=== PATIENT | female | born 1945 | race Caucasian/White ===

== ENCOUNTER → 2017-11-12 | Outpatient (CLI) | payer MEDICARE ==
[~2017-11-12] MED LIST: ARIMIDEX1 MG PO; ASPIRIN FOR CHI81 MG PO; BACTRIM DS 8001 TA1 PO; KLOR-CON 88 MEQ PO; LASIX40 MG PO; LEVOFLOXACIN500 MG PO; LEXAPRO10 MG PO; LOTRISONE 0.05%45 GM T; PREDNICOT20 MG PO; SIMVASTATIN20 MG PO; VICODIN 500 MG-1 TAB PO
== END | disposition home or self-care (01) ==
LOC: RAD 12:01
DX: I10 Essential (primary) hypertension (principal); R06.02 Shortness of breath; R05 Cough; R09.89 Other specified symptoms and signs involving the circulatory and respiratory systems; Z87.891 Personal history of nicotine dependence; Z85.3 Personal history of malignant neoplasm of breast

== ENCOUNTER → 2017-12-28 | Outpatient (CLI) | payer MEDICARE ==
--- NOTE | ~2017-12-28 | PF ---
[place], [place] PULMONARY FUNCTION TEST NAME: SUNDAYKA[facility] UNIT #: [id number] ROOM: DOCTOR: BENITEZ JACINTO MD,MICHELA BIRTHDATE: [birth year] DOS: 12/28/2017 The procedure was ordered by Dr. Leah Marin. HISTORY: The patient was noted as a 72-year-old female, height of 60 inches, weight 194 pounds with BMI of the patient at this time not available. The patient testing was done for assessment of the shortness of breath. The patient was also reported symptoms of frequent wheezing. Past tobacco use was noted about two-thirds pack of cigarettes per day for 25 years, discontinued 30 years ago. SPIROMETRY: The FVC was recorded 1.94 liters, 82% predicted value. FEV1 was noted at 1.42 liters at 78% predicted value, mildly decreased. No significant improvement occurred postbronchodilator test. Ratio of FEV1/FVC recorded 73%. Flow volume loop for the patient noted with suboptimal effort was suspected. The lung volumes, thoracic gas volume recorded as 76%, residual volume of 87%, total lung capacity 72%. RV/TLC ratio 125%. The lung volume for the patient was suggestive of mild restrictive lung disease. The patient lung diffusion recorded 62%, mildly decreased without correction of carbon monoxide and hemoglobin values. The patient's airway resistance and passive conductance were noted normal. FINAL IMPRESSION: Mild restrictive lung disease. The patient was assessed, ____ etiology is unclear. Clinical correlation was advised. MICHELA MARQUIS MD CM:PFREPORT:PULMONARY FUNCTION TEST [id number] MICHELA JACINTO MD
== END | disposition home or self-care (01) ==
LOC: CP 10:11
DX: J98.4 Other disorders of lung (principal); Z87.891 Personal history of nicotine dependence

== ENCOUNTER 2018-11-17 14:16 | Emergency (ER) | payer MEDICARE ==
[~2018-11-17] VITALS: Ht 152.4 cm; Wt 86.2 kg
[2018-11-17] MEDS ORDERED: ANAPROX DS550 MG PO (14:40)
[2018-11-17] MEDS ORDERED: MOBIC7.5 MG PO (16:01)
== END 2018-11-17 16:18 | disposition home or self-care (01) ==
LOC: ED 14:16
DX: M25.511 Pain in right shoulder (principal); I10 Essential (primary) hypertension; E78.00 Pure hypercholesterolemia, unspecified; M17.0 Bilateral primary osteoarthritis of knee; Z79.899 Other long term (current) drug therapy; Z79.82 Long term (current) use of aspirin; Z96.651 Presence of right artificial knee joint; Z96.652 Presence of left artificial knee joint

== ENCOUNTER → 2018-11-28 | Outpatient (CLI) | payer MEDICARE ==
[~2018-11-28] MED LIST changes: +ANAPROX DS550 MG PO; +MOBIC7.5 MG PO
== END | disposition home or self-care (01) ==
LOC: RAD 08:56
DX: M25.78 Osteophyte, vertebrae (principal)

== ENCOUNTER 2019-04-12 21:30 | Emergency (ER) | payer MEDICARE ==
[~2019-04-12] VITALS: Ht 152.4 cm; Wt 88.0 kg
== END 2019-04-13 00:27 | disposition home or self-care (01) ==
LOC: ED 21:30
DX: S93.401A Sprain of unspecified ligament of right ankle, initial encounter (principal); M79.671 Pain in right foot; Z79.899 Other long term (current) drug therapy; Z79.82 Long term (current) use of aspirin; W01.0XXA Fall on same level from slipping, tripping and stumbling without subsequent striking against object, initial encounter; Y93.89 Activity, other specified; Y92.098 Other place in other non-institutional residence as the place of occurrence of the external cause; Y99.8 Other external cause status

== ENCOUNTER → 2019-04-15 | Outpatient (CLI) | payer MEDICARE ==
[~2019-04-15] MED LIST changes: +ACCUPRIL5 M1 PO; +CALCIUM + VITA1 EAC2 PO; +CENTRUM SILVER1 EACH PO; +COREG6.25 MG PO; +ELIQUIS5 M1 PO; +KLOR-CON 1010 ME1 PO; +TAMOXIFEN CITRA20 MG PO; +VITAMIN D50000 UNIT PO; +XANAX0.25 MG PO
== END | disposition home or self-care (01) ==
LOC: US 16:28
DX: M79.605 Pain in left leg (principal); R60.9 Edema, unspecified

== ENCOUNTER 2019-05-27 15:34 | Inpatient (IN) | payer MEDICARE ==
[~2019-05-27] VITALS: Ht 152.4 cm; Wt 92.4 kg
[~2019-05-27 15:34] MED LIST changes: -ACCUPRIL5 M1 PO; -CALCIUM + VITA1 EAC2 PO; -CENTRUM SILVER1 EACH PO; -COREG6.25 MG PO; -ELIQUIS5 M1 PO; -KLOR-CON 1010 ME1 PO; -TAMOXIFEN CITRA20 MG PO; -VITAMIN D50000 UNIT PO; -XANAX0.25 MG PO
[2019-05-27 16:33] LABS: BASO % 0.5 % (0.0-1.0); EOS # 0.2 10*3/uL (0.0-0.4); EOS % 2.3 % (1.0-4.0); HEMATOCRIT 37.8 % (37.0-47.0); HEMOGLOBIN 12.6 g/dl (12.0-16.0); LYMPH # 1.9 10*3/uL (1.3-4.4); LYMPH % 30.1 % (27.0-41.0); MEAN CELL VOLUME 90.6 fl (81.0-99.0); MEAN CORPUSCULAR HGB 30.2 pg (27.0-31.0); MEAN CORPUSCULAR HGB CONC 33.3 g/dl (33.0-37.0); MEAN PLATELET VOLUME 8.9 fl (9.6-12.3); MONO # 0.6 10*3/uL (0.1-1.0); MONO % 9.5 % (3.0-9.0); NEUT # 3.7 10*3/uL (2.3-7.9); NEUT % 57.3 % (47.0-73.0); PLATELET COUNT AUTOMATED 131 10*3/uL (130-400); RED BLOOD COUNT 4.17 10*6/uL (4.10-5.10); RED CELL DISTRI WIDTH 13.5 % (0-14.5); WHITE BLOOD COUNT 6.5 10*3/uL (4.8-10.8)
[2019-05-27 16:45] LABS: ACT PARTIAL THROMBO TIME 23.8 SECONDS (20.0-32.1); INTERNATIONAL NORM RATIO 0.9 (2.0-3.5)
[2019-05-27 16:47] LABS: ALBUMIN 3.6 gm/dl (3.1-4.5); ALKALINE PHOSPHATASE 58 U/L (45-117); BUN 18 mg/dl (7-24); CHLORIDE 108 mmol/L (98-107); CREATININE 0.97 mg/dL (0.55-1.02); SGOT/AST 16 IU/L (3-35); SGPT/ALT 24 U/L (12-78); SODIUM 141 mmol/L (136-145); TOTAL PROTEIN 6.8 gm/dL (6.4-8.2)
[2019-05-27] MEDS ORDERED: KLOR-CON 1010 ME1 PO (17:06)
[2019-05-27] MEDS ORDERED: XANAX0.25 MG PO (17:07)
[2019-05-27] MEDS ORDERED: COREG6.25 MG PO (17:07)
[2019-05-27] MEDS ORDERED: LASIX40 MG PO (17:08)
[2019-05-27] MEDS ORDERED: ACCUPRIL5 M1 PO (17:09)
[2019-05-27] MEDS ORDERED: TAMOXIFEN CITRA20 MG PO (17:10)
[2019-05-27] MEDS ORDERED: CENTRUM SILVER1 EACH PO (17:11)
[2019-05-27] MEDS ORDERED: CALCIUM + VITA1 EAC2 PO (17:11)
[2019-05-27] MEDS ORDERED: VITAMIN D50000 UNIT PO (17:12)
--- NOTE | 2019-05-27 17:12 | NUR ---
MED REC UPDATED WITH PT AT BEDSIDE VIA LIST FROM HOME.
[2019-05-27 18:08] VITALS: BP 163/57
[2019-05-27 20:00] VITALS: BP 155/51
[2019-05-28] VITALS: BP 148/47
--- NOTE | 2019-05-28 04:51 | NUR ---
PATIENT RESTING WITH EYES CLOSED.RESPIRATIONS EASY AND UNLABORED. CALL LIGHT WITHIN REACH. WILL MONITOR.
--- NOTE | 2019-05-28 04:54 | NUR ---
24 HR chart check completed.
[2019-05-28 06:36] LABS: BASO % 0.6 % (0.0-1.0); EOS # 0.2 10*3/uL (0.0-0.4); HEMATOCRIT 34.5 % (37.0-47.0); HEMOGLOBIN 11.2 g/dl (12.0-16.0); LYMPH # 1.8 10*3/uL (1.3-4.4); LYMPH % 35.9 % (27.0-41.0); MEAN CORPUSCULAR HGB 29.6 pg (27.0-31.0); MEAN CORPUSCULAR HGB CONC 32.5 g/dl (33.0-37.0); MEAN PLATELET VOLUME 9.5 fl (9.6-12.3); MONO # 0.5 10*3/uL (0.1-1.0); NEUT # 2.5 10*3/uL (2.3-7.9); NEUT % 50.3 % (47.0-73.0); PLATELET COUNT AUTOMATED 126 10*3/uL (130-400); RED BLOOD COUNT 3.79 10*6/uL (4.10-5.10); RED CELL DISTRI WIDTH 13.5 % (0-14.5)
--- NOTE | 2019-05-28 06:55 | NUR ---
UNABLE TO GET IV IN PATIENT. 2 NURSES TRIED3 TIMES ON LEFT ARM DUE TO RESTRICTION ON RIGHT ARM. DR MENESES CALLED- NO ANSWER. WILL CALL BACK.
--- NOTE | 2019-05-28 06:57 | NUR ---
NEW CONSULT CALLED TO DR EID.
--- NOTE | 2019-05-28 09:00 | NUR ---
[employer] Attendant in to talk to patient. Patient states lives at home with her . There are 1 steps in the home. Physician: Dr. Leah Marin [facility] Home health services: none Patient's level of ADLs: INDEPENDENT Patient has working utilities: yes DME: [facility] Follow-up physician's appointment after d/c: she prefers to make her own follow up appt after discharge Does patient want to access PORTAL?: no Discharge plan discussed with patient. She lives at home with her . She is independent in her ADLs and ambulation. Discussed home health care services and she denies any home needs at this time. When medically stable she will be discharged to home. Her will transport on discharge. ANAYA PARK
[2019-05-28 12:00] VITALS: BP 145/53
[2019-05-28 16:00] VITALS: BP 143/51
[2019-05-28 20:00] VITALS: BP 155/54
[2019-05-29] VITALS: BP 141/55
--- NOTE | 2019-05-29 01:51 | NUR ---
24 HR chart check completed.
[2019-05-29] MEDS ORDERED: ELIQUIS5 M1 PO ×2 (09:43→09:46)
--- NOTE | 2019-05-29 13:55 | NUR ---
Discharge instructions reviewed with patient/family. Patient receptive and verbalizes understanding. Follow-up care arranged. Written instructions given to patient/family. BETH SPENCER
== END 2019-05-29 13:55 | disposition home or self-care (01) | DRG 300 ==
LOC: ED 15:34 → EDHOLD 16:19 → 4E 16:19
PROVIDERS: Family Medicine; ADMIT Internal Medicine
DX: I82.411 Acute embolism and thrombosis of right femoral vein (principal); F33.0 Major depressive disorder, recurrent, mild; I82.431 Acute embolism and thrombosis of right popliteal vein; I82.491 Acute embolism and thrombosis of other specified deep vein of right lower extremity; E78.2 Mixed hyperlipidemia; I10 Essential (primary) hypertension; F41.1 Generalized anxiety disorder; G35 Multiple sclerosis; Z96.651 Presence of right artificial knee joint; Z90.49 Acquired absence of other specified parts of digestive tract; Z90.710 Acquired absence of both cervix and uterus; Z85.3 Personal history of malignant neoplasm of breast; Z79.82 Long term (current) use of aspirin; Z79.899 Other long term (current) drug therapy

== ENCOUNTER → 2019-05-27 | Outpatient (CLI) | payer MEDICARE | END | disposition home or self-care (01) | LOC: US 13:54 | DX: I82.411 Acute embolism and thrombosis of right femoral vein (principal) ==

== ENCOUNTER → 2019-07-08 | Outpatient (CLI) | payer MEDICARE ==
[~2019-07-08] MED LIST changes: +ACCUPRIL5 M1 PO; +CALCIUM + VITA1 EAC2 PO; +CENTRUM SILVER1 EACH PO; +COREG6.25 MG PO; +ELIQUIS5 M1 PO; +KLOR-CON 1010 ME1 PO; +TAMOXIFEN CITRA20 MG PO; +VITAMIN D50000 UNIT PO; +XANAX0.25 MG PO
== END | disposition home or self-care (01) ==
LOC: RAD 10:53
DX: M85.88 Other specified disorders of bone density and structure, other site (principal); Z78.0 Asymptomatic menopausal state; Z85.3 Personal history of malignant neoplasm of breast

== ENCOUNTER → 2019-10-02 | Outpatient (CLI) | payer MEDICARE ==
[2019-10-02 13:41] LABS: BASO % 0.5 % (0.0-1.0); EOS # 0.1 10*3/uL (0.0-0.4); EOS % 1.8 % (1.0-4.0); HEMATOCRIT 39.9 % (37.0-47.0); HEMOGLOBIN 12.7 g/dl (12.0-16.0); LYMPH # 1.7 10*3/uL (1.3-4.4); LYMPH % 28.6 % (27.0-41.0); MEAN CELL VOLUME 90.3 fl (81.0-99.0); MEAN CORPUSCULAR HGB 28.7 pg (27.0-31.0); MEAN CORPUSCULAR HGB CONC 31.8 g/dl (33.0-37.0); MEAN PLATELET VOLUME 8.9 fl (9.6-12.3); MONO # 0.4 10*3/uL (0.1-1.0); MONO % 7.1 % (3.0-9.0); NEUT # 3.7 10*3/uL (2.3-7.9); NEUT % 61.7 % (47.0-73.0); PLATELET COUNT AUTOMATED 144 10*3/uL (130-400); RED BLOOD COUNT 4.42 10*6/uL (4.10-5.10); RED CELL DISTRI WIDTH 13.7 % (0-14.5)
[2019-10-02 14:11] LABS: ALBUMIN 3.4 gm/dl (3.1-4.5); BUN 17 mg/dl (7-24); CHLORIDE 110 mmol/L (98-107); CHOLESTEROL 139 mg/dL (<200); CREATININE 0.99 mg/dL (0.55-1.02); POTASSIUM 4.2 mmol/L (3.5-5.1); SGOT/AST 18 IU/L (3-35); SGPT/ALT 23 U/L (12-78); SODIUM 144 mmol/L (136-145); TOTAL PROTEIN 6.8 gm/dL (6.4-8.2); TRIGLYCERIDES 222 mg/dl (<150); VLDL CHOLESTEROL 44 mg/dL (6-40)
[2019-10-02 14:18] LABS: ALKALINE PHOSPHATASE 74 U/L (45-117); FREE T4 1.12 ng/dl (0.76-1.46); HDL CHOLESTEROL 48 mg/dl (40-60); LDL CHOLESTEROL 47 mg/dL (9-159)
[2019-10-02 14:45] LABS: VITAMIN D, 25-HYDROXY 51.9 ng/mL (30-100)
== END | disposition home or self-care (01) ==
LOC: LAB 12:53 → US 13:30
PROVIDERS: Internal Medicine
DX: I82.409 Acute embolism and thrombosis of unspecified deep veins of unspecified lower extremity (principal); E55.9 Vitamin D deficiency, unspecified

== ENCOUNTER 2020-04-18 09:24 | Inpatient (IN) | payer MEDICARE ==
[2020-04-18] VITALS (7 sets, daily range): BP systolic 132–154; BP diastolic 53–68
[~2020-04-18] VITALS: Ht 152.4 cm; Wt 80.9 kg
[2020-04-18 10:00] LABS: BASO % 0.2 % (0.0-1.0); EOS % 0.5 % (1.0-4.0); HEMATOCRIT 42.8 % (37.0-47.0); LYMPH # 1.2 10*3/uL (1.3-4.4); LYMPH % 13.2 % (27.0-41.0); MEAN CELL VOLUME 86.8 fl (81.0-99.0); MEAN CORPUSCULAR HGB CONC 33.4 g/dl (33.0-37.0); MEAN PLATELET VOLUME 8.4 fl (9.6-12.3); MONO # 0.7 10*3/uL (0.1-1.0); MONO % 7.6 % (3.0-9.0); NEUT # 6.9 10*3/uL (2.3-7.9); NEUT % 78.3 % (47.0-73.0); PLATELET COUNT AUTOMATED 127 10*3/uL (130-400); RED BLOOD COUNT 4.93 10*6/uL (4.10-5.10); RED CELL DISTRI WIDTH 13.7 % (0-14.5); WHITE BLOOD COUNT 8.8 10*3/uL (4.8-10.8)
[2020-04-18 10:13] LABS: ACT PARTIAL THROMBO TIME 26.6 SECONDS (20.0-32.1)
[2020-04-18 10:16] LABS: ALBUMIN 3.4 gm/dl (3.1-4.5); ALKALINE PHOSPHATASE 131 U/L (45-117); BUN 16 mg/dl (7-24); CHLORIDE 108 mmol/L (98-107); POTASSIUM 3.7 mmol/L (3.5-5.1); SGOT/AST 32 IU/L (3-35); SGPT/ALT 62 U/L (12-78); SODIUM 140 mmol/L (136-145); TOTAL PROTEIN 7.4 gm/dL (6.4-8.2)
[2020-04-19] VITALS (7 sets, daily range): BP systolic 136–168; BP diastolic 46–68
[2020-04-19 06:49] LABS: BASO % 0.3 % (0.0-1.0); EOS # 0.2 10*3/uL (0.0-0.4); HEMATOCRIT 40.6 % (37.0-47.0); LYMPH # 1.8 10*3/uL (1.3-4.4); LYMPH % 28.6 % (27.0-41.0); MEAN CELL VOLUME 87.9 fl (81.0-99.0); MEAN CORPUSCULAR HGB 28.8 pg (27.0-31.0); MEAN CORPUSCULAR HGB CONC 32.8 g/dl (33.0-37.0); MEAN PLATELET VOLUME 9.1 fl (9.6-12.3); MONO # 0.5 10*3/uL (0.1-1.0); MONO % 8.3 % (3.0-9.0); NEUT # 3.8 10*3/uL (2.3-7.9); NEUT % 59.5 % (47.0-73.0); PLATELET COUNT AUTOMATED 121 10*3/uL (130-400); RED BLOOD COUNT 4.62 10*6/uL (4.10-5.10); RED CELL DISTRI WIDTH 13.8 % (0-14.5); WHITE BLOOD COUNT 6.4 10*3/uL (4.8-10.8)
[2020-04-19] MEDS ORDERED: ESCITALOPRAM OXA5 MG PO (07:18)
[2020-04-20] VITALS: BP 122/52
[2020-04-20 06:15] LABS: BASO % 0.2 % (0.0-1.0); EOS # 0.2 10*3/uL (0.0-0.4); EOS % 2.7 % (1.0-4.0); LYMPH # 1.7 10*3/uL (1.3-4.4); LYMPH % 27.2 % (27.0-41.0); MEAN CELL VOLUME 87.6 fl (81.0-99.0); MEAN CORPUSCULAR HGB 29.2 pg (27.0-31.0); MEAN CORPUSCULAR HGB CONC 33.3 g/dl (33.0-37.0); MEAN PLATELET VOLUME 8.6 fl (9.6-12.3); MONO # 0.5 10*3/uL (0.1-1.0); MONO % 7.8 % (3.0-9.0); NEUT # 3.9 10*3/uL (2.3-7.9); NEUT % 61.8 % (47.0-73.0); PLATELET COUNT AUTOMATED 114 10*3/uL (130-400); RED BLOOD COUNT 4.45 10*6/uL (4.10-5.10); RED CELL DISTRI WIDTH 13.7 % (0-14.5); WHITE BLOOD COUNT 6.3 10*3/uL (4.8-10.8)
[2020-04-20 08:00] VITALS: BP 131/53
[2020-04-20 12:00] VITALS: BP 144/49
[2020-04-20 16:00] VITALS: BP 136/55
[2020-04-20 20:00] VITALS: BP 114/46
[2020-04-21] VITALS: BP 136/50
[2020-04-21 06:56] LABS: BASO % 0.3 % (0.0-1.0); EOS # 0.2 10*3/uL (0.0-0.4); HEMATOCRIT 38.4 % (37.0-47.0); LYMPH # 1.6 10*3/uL (1.3-4.4); LYMPH % 28.2 % (27.0-41.0); MEAN CELL VOLUME 87.9 fl (81.0-99.0); MEAN CORPUSCULAR HGB 29.1 pg (27.0-31.0); MEAN CORPUSCULAR HGB CONC 33.1 g/dl (33.0-37.0); MEAN PLATELET VOLUME 8.7 fl (9.6-12.3); MONO # 0.4 10*3/uL (0.1-1.0); NEUT # 3.5 10*3/uL (2.3-7.9); NEUT % 61.2 % (47.0-73.0); PLATELET COUNT AUTOMATED 121 10*3/uL (130-400); RED BLOOD COUNT 4.37 10*6/uL (4.10-5.10); RED CELL DISTRI WIDTH 13.5 % (0-14.5); WHITE BLOOD COUNT 5.8 10*3/uL (4.8-10.8)
[2020-04-21 08:00] VITALS: BP 146/65
[2020-04-21 12:00] VITALS: BP 152/69
[2020-04-21] MEDS ORDERED: CIPRO500 MG PO (13:41)
[2020-04-21] MEDS ORDERED: FLAGYL500 MG PO (13:41)
== END 2020-04-21 14:04 | disposition home or self-care (01) | DRG 378 ==
LOC: ED 09:24 → 5E 12:17 → 4E 12:17 → EDHOLD 12:17 → 4E 12:50 → 5E 13:08
PROVIDERS: Emergency Medicine; ADMIT Internal Medicine
DX: K57.33 Diverticulitis of large intestine without perforation or abscess with bleeding (principal); F33.0 Major depressive disorder, recurrent, mild; G35 Multiple sclerosis; F41.1 Generalized anxiety disorder; I10 Essential (primary) hypertension; E78.2 Mixed hyperlipidemia; Z96.651 Presence of right artificial knee joint; Z86.718 Personal history of other venous thrombosis and embolism; Z85.3 Personal history of malignant neoplasm of breast; Z90.49 Acquired absence of other specified parts of digestive tract; Z90.710 Acquired absence of both cervix and uterus

== ENCOUNTER → 2020-05-05 | Outpatient (CLI) | payer MEDICARE ==
[~2020-05-05] MED LIST changes: +CIPRO500 MG PO; +ESCITALOPRAM OXA5 MG PO; +FLAGYL500 MG PO
[2020-05-05 09:18] LABS: BASO % 0.4 % (0.0-1.0); EOS # 0.2 10*3/uL (0.0-0.4); HEMATOCRIT 40.4 % (37.0-47.0); LYMPH # 1.4 10*3/uL (1.3-4.4); LYMPH % 24.9 % (27.0-41.0); MEAN CELL VOLUME 89.6 fl (81.0-99.0); MEAN CORPUSCULAR HGB CONC 32.4 g/dl (33.0-37.0); MEAN PLATELET VOLUME 8.7 fl (9.6-12.3); MONO # 0.4 10*3/uL (0.1-1.0); MONO % 6.1 % (3.0-9.0); NEUT # 3.7 10*3/uL (2.3-7.9); NEUT % 65.2 % (47.0-73.0); PLATELET COUNT AUTOMATED 149 10*3/uL (130-400); RED BLOOD COUNT 4.51 10*6/uL (4.10-5.10); RED CELL DISTRI WIDTH 13.8 % (0-14.5); WHITE BLOOD COUNT 5.7 10*3/uL (4.8-10.8)
[2020-05-05 09:49] LABS: BUN 20 mg/dl (7-24); CHLORIDE 108 mmol/L (98-107); CREATININE 1.05 mg/dL (0.55-1.02); POTASSIUM 3.9 mmol/L (3.5-5.1); SODIUM 140 mmol/L (136-145)
== END | disposition home or self-care (01) ==
LOC: LAB 09:03
PROVIDERS: Internal Medicine
DX: K57.92 Diverticulitis of intestine, part unspecified, without perforation or abscess without bleeding (principal)

== ENCOUNTER → 2020-05-12 | Outpatient (CLI) | payer MEDICARE ==
[~2020-05-12] MED LIST changes: +LASIX20 MG PO; +METAMUCIL0.4 G1 PO
== END | disposition home or self-care (01) ==
LOC: COVID19 05:35
DX: Z01.818 Encounter for other preprocedural examination (principal); Z11.59 Encounter for screening for other viral diseases

== ENCOUNTER → 2020-05-17 | Day surgery (SDC) | payer MEDICARE ==
[~2020-05-17] VITALS: Ht 152.4 cm; Wt 81.2 kg
[2020-05-17 07:45] VITALS: BP 164/68
[2020-05-17 09:09] VITALS: BP 147/78
[2020-05-17 09:24] VITALS: BP 161/72
[2020-05-17 09:39] VITALS: BP 161/67
== END | disposition home or self-care (01) ==
LOC: SDC 05-13 08:45
PROVIDERS: ATTEND Surgery
DX: Z09 Encounter for follow-up examination after completed treatment for conditions other than malignant neoplasm (principal); K57.32 Diverticulitis of large intestine without perforation or abscess without bleeding; I10 Essential (primary) hypertension; E78.00 Pure hypercholesterolemia, unspecified; F41.9 Anxiety disorder, unspecified; E78.5 Hyperlipidemia, unspecified; Z98.890 Other specified postprocedural states; Z79.899 Other long term (current) drug therapy

== ENCOUNTER 2020-06-10 19:02 | Emergency (ER) | payer MEDICARE ==
[~2020-06-10] VITALS: Ht 152.4 cm; Wt 78.9 kg
[2020-06-10 19:51] LABS: BASO % 0.4 % (0.0-1.0); EOS # 0.3 10*3/uL (0.0-0.4); EOS % 3.6 % (1.0-4.0); HEMATOCRIT 40.7 % (37.0-47.0); LYMPH # 1.7 10*3/uL (1.3-4.4); LYMPH % 24.9 % (27.0-41.0); MEAN CORPUSCULAR HGB 28.4 pg (27.0-31.0); MEAN CORPUSCULAR HGB CONC 32.7 g/dl (33.0-37.0); MEAN PLATELET VOLUME 8.7 fl (9.6-12.3); MONO # 0.7 10*3/uL (0.1-1.0); MONO % 10.4 % (3.0-9.0); NEUT # 4.2 10*3/uL (2.3-7.9); NEUT % 60.4 % (47.0-73.0); PLATELET COUNT AUTOMATED 178 10*3/uL (130-400); RED BLOOD COUNT 4.68 10*6/uL (4.10-5.10); RED CELL DISTRI WIDTH 13.5 % (0-14.5); WHITE BLOOD COUNT 6.9 10*3/uL (4.8-10.8)
[2020-06-10 20:06] LABS: ACT PARTIAL THROMBO TIME 25.9 SECONDS (20.0-32.1); ALBUMIN 3.3 gm/dl (3.1-4.5); ALKALINE PHOSPHATASE 107 U/L (45-117); BUN 19 mg/dl (7-24); CHLORIDE 107 mmol/L (98-107); LIPASE 48 U/L (73-393); POTASSIUM 4.2 mmol/L (3.5-5.1); SGOT/AST 18 IU/L (3-35); SGPT/ALT 33 U/L (12-78); SODIUM 138 mmol/L (136-145)
[2020-06-10 20:22] LABS: BILIRUBIN 1+; BLOOD 2+ (NEGATIVE); CLARITY TURBID (CLEAR); COLOR DARK YELLOW (YELLOW); GLUCOSE NEGATIVE; KETONE TRACE; LEUKO ESTERASE 2+ (NEGATIVE); NITRITE NEGATIVE (NEGATIVE); SPECIFIC GRAVITY 1.025 (1.001-1.030)
[2020-06-10 20:25] LABS: EPITHELIAL CELLS 16-20
[2020-06-10 20:28] LABS: BACTERIA 4+
[2020-06-10] MEDS ORDERED: OMNICEF300 MG PO (22:05)
[2020-06-10] MEDS ORDERED: FLAGYL500 MG PO (22:05)
== END 2020-06-10 23:49 | disposition home or self-care (01) ==
LOC: ED 19:02
PROVIDERS: Physician Assistant
DX: N39.0 Urinary tract infection, site not specified (principal); K52.9 Noninfective gastroenteritis and colitis, unspecified; Z79.82 Long term (current) use of aspirin; Z79.899 Other long term (current) drug therapy

== ENCOUNTER → 2020-06-29 | Outpatient (CLI) | payer MEDICARE ==
[~2020-06-29] MED LIST changes: +OMNICEF300 MG PO
== END | disposition home or self-care (01) ==
LOC: CT 09:59
PROVIDERS: ATTEND Internal Medicine
DX: K57.30 Diverticulosis of large intestine without perforation or abscess without bleeding (principal); K52.9 Noninfective gastroenteritis and colitis, unspecified; Z90.49 Acquired absence of other specified parts of digestive tract

== ENCOUNTER 2021-01-04 11:39 | Emergency (ER) | payer MEDICARE ==
[~2021-01-04] VITALS: Wt 83.9 kg
[2021-01-04 12:22] LABS: BASO % 0.4 % (0.0-1.0); EOS # 0.2 10*3/uL (0.0-0.4); EOS % 2.6 % (1.0-4.0); HEMATOCRIT 43.2 % (37.0-47.0); LYMPH # 1.7 10*3/uL (1.3-4.4); LYMPH % 24.5 % (27.0-41.0); MEAN CELL VOLUME 90.2 fl (81.0-99.0); MEAN CORPUSCULAR HGB 28.8 pg (27.0-31.0); MEAN CORPUSCULAR HGB CONC 31.9 g/dl (33.0-37.0); MONO # 0.5 10*3/uL (0.1-1.0); MONO % 7.1 % (3.0-9.0); NEUT # 4.6 10*3/uL (2.3-7.9); NEUT % 65.1 % (47.0-73.0); PLATELET COUNT AUTOMATED 138 10*3/uL (130-400); RED BLOOD COUNT 4.79 10*6/uL (4.10-5.10); RED CELL DISTRI WIDTH 13.4 % (0-14.5)
[2021-01-04 12:39] LABS: ALBUMIN 3.3 gm/dl (3.1-4.5); ALKALINE PHOSPHATASE 100 U/L (45-117); BUN 23 mg/dl (7-24); CHLORIDE 107 mmol/L (98-107); CREATININE 0.95 mg/dL (0.55-1.02); POTASSIUM 5.1 mmol/L (3.5-5.1); SGOT/AST 22 IU/L (3-35); SGPT/ALT 18 U/L (12-78); SODIUM 138 mmol/L (136-145); TOTAL PROTEIN 6.9 gm/dL (6.4-8.2)
[2021-01-04 12:43] LABS: TROPONIN I < 0.015 ng/ml (<0.045)
== END 2021-01-04 16:02 | disposition home or self-care (01) ==
LOC: ED 11:39
PROVIDERS: Internal Medicine
DX: R42 Dizziness and giddiness (principal); I10 Essential (primary) hypertension; F41.9 Anxiety disorder, unspecified; F32.9 Major depressive disorder, single episode, unspecified; E78.00 Pure hypercholesterolemia, unspecified; Z79.899 Other long term (current) drug therapy; Z79.82 Long term (current) use of aspirin; Z90.49 Acquired absence of other specified parts of digestive tract; Z90.710 Acquired absence of both cervix and uterus

== ENCOUNTER → 2021-01-04 | Outpatient (CLI) | payer MEDICARE | END | disposition home or self-care (01) | LOC: RAD 11:01 | PROVIDERS: ATTEND Internal Medicine | DX: M25.552 Pain in left hip (principal) ==

== ENCOUNTER → 2021-02-08 | Outpatient (CLI) | payer MEDICARE | END | disposition home or self-care (01) | LOC: US 13:22 | PROVIDERS: ATTEND Internal Medicine | DX: I65.23 Occlusion and stenosis of bilateral carotid arteries (principal) ==

== ENCOUNTER → 2021-09-05 | Outpatient (CLI) | payer MEDICARE | END | disposition home or self-care (01) | LOC: US 10:30 | PROVIDERS: ATTEND Surgery Vascular Surgery | DX: I65.23 Occlusion and stenosis of bilateral carotid arteries (principal) ==

== ENCOUNTER → 2022-05-26 | Outpatient (CLI) | payer MEDICARE | END | disposition home or self-care (01) | LOC: US 05-25 11:00 | PROVIDERS: ATTEND Surgery Vascular Surgery | DX: I65.23 Occlusion and stenosis of bilateral carotid arteries (principal) ==

== ENCOUNTER → 2022-07-07 | Outpatient (CLI) | payer MEDICARE ==
[2022-07-07 10:25] LABS: BASO % 0.6 % (0.0-1.0); EOS # 0.1 10*3/uL (0.0-0.4); EOS % 2.2 % (1.0-4.0); HEMATOCRIT 40.6 % (37.0-47.0); LYMPH # 1.5 10*3/uL (1.3-4.4); LYMPH % 24.2 % (27.0-41.0); MEAN CELL VOLUME 91.2 fl (81.0-99.0); MEAN CORPUSCULAR HGB 29.7 pg (27.0-31.0); MEAN CORPUSCULAR HGB CONC 32.5 g/dl (33.0-37.0); MEAN PLATELET VOLUME 8.9 fl (9.6-12.3); MONO # 0.5 10*3/uL (0.1-1.0); NEUT % 64.7 % (47.0-73.0); PLATELET COUNT AUTOMATED 152 10*3/uL (130-400); RED BLOOD COUNT 4.45 10*6/uL (4.10-5.10); RED CELL DISTRI WIDTH 13.9 % (0-14.5); WHITE BLOOD COUNT 6.3 10*3/uL (4.8-10.8)
[2022-07-07 10:46] LABS: BUN 20 mg/dl (7-24); CHLORIDE 108 mmol/L (98-107); CHOLESTEROL 143 mg/dL (<200); CREATININE 0.98 mg/dL (0.55-1.02); POTASSIUM 4.5 mmol/L (3.5-5.1); SGOT/AST 14 IU/L (3-35); SGPT/ALT 22 U/L (12-78); SODIUM 142 mmol/L (136-145); TOTAL PROTEIN 6.7 gm/dL (6.4-8.2); TRIGLYCERIDES 147 mg/dl (<150)
[2022-07-07 10:53] LABS: ALKALINE PHOSPHATASE 89 U/L (45-117); FREE T4 1.13 ng/dl (0.76-1.46); LDL CHOLESTEROL 51 mg/dL (9-159)
[2022-07-07 11:54] LABS: VITAMIN D, 25-HYDROXY 40.6 ng/mL (30-100)
== END | disposition home or self-care (01) ==
LOC: LAB 08:52 → RAD 09:00
PROVIDERS: ATTEND Internal Medicine
DX: M85.9 Disorder of bone density and structure, unspecified (principal); I10 Essential (primary) hypertension; E78.2 Mixed hyperlipidemia; R73.03 Prediabetes; Z86.718 Personal history of other venous thrombosis and embolism; E55.9 Vitamin D deficiency, unspecified; Z78.0 Asymptomatic menopausal state

== ENCOUNTER → 2022-09-28 | Outpatient (CLI) | payer MEDICARE ==
[2022-09-28 12:59] LABS: CHOLESTEROL 154 mg/dL (<200); LDL CHOLESTEROL 67 mg/dL (9-159); TRIGLYCERIDES 144 mg/dl (<150)
== END | disposition home or self-care (01) ==
LOC: LAB 12:12
PROVIDERS: ATTEND Internal Medicine Cardiovascular Disease
DX: E78.5 Hyperlipidemia, unspecified (principal)

== ENCOUNTER 2022-11-26 16:45 | Emergency (ER) | payer MEDICARE ==
[~2022-11-26] VITALS: Ht 165.1 cm; Wt 88.5 kg
[2022-11-26 17:15] LABS: BILIRUBIN Negative (Negative); BLOOD Negative (Negative); CLARITY Clear (Clear); COLOR Yellow (Yellow); GLUCOSE Negative (Negative); KETONE Negative (Negative); LEUKO ESTERASE Negative (Negative); NITRITE Negative (Negative); SPECIFIC GRAVITY 1.025 (1.001-1.030)
[2022-11-26 17:29] LABS: BACTERIA 1+
[2022-11-26] MEDS ORDERED: HYDROCODONE-AC1 EAC1 PO (18:50)
[2022-11-26] MEDS ORDERED: LEVOFLOXACIN250 M2 PO (18:50)
== END 2022-11-26 18:58 | disposition home or self-care (01) ==
LOC: ED 16:45
PROVIDERS: Student in an Organized Health Care Education/Training Program
DX: M54.50 Low back pain, unspecified (principal); I10 Essential (primary) hypertension; F41.9 Anxiety disorder, unspecified; F32.A Depression, unspecified; Z90.49 Acquired absence of other specified parts of digestive tract; Z90.710 Acquired absence of both cervix and uterus; Z96.653 Presence of artificial knee joint, bilateral; Z98.890 Other specified postprocedural states

== ENCOUNTER → 2023-04-03 | Outpatient (CLI) | payer MEDICARE ==
[~2023-04-03] MED LIST changes: +HYDROCODONE-AC1 EAC1 PO; +LEVOFLOXACIN250 M2 PO
== END | disposition home or self-care (01) ==
LOC: US 00:18
PROVIDERS: ATTEND Surgery Vascular Surgery
DX: I65.23 Occlusion and stenosis of bilateral carotid arteries (principal)

== ENCOUNTER → 2023-07-05 | Outpatient (CLI) | payer MEDICARE ==
[2023-07-05 11:07] LABS: BASO # 0.1 10*3/uL (0.0-0.1); BASO % 0.7 % (0.0-1.0); EOS # 0.2 10*3/uL (0.0-0.4); EOS % 2.4 % (1.0-4.0); HEMATOCRIT 39.3 % (37.0-47.0); LYMPH # 1.6 10*3/uL (1.3-4.4); LYMPH % 20.5 % (27.0-41.0); MEAN CELL VOLUME 91.2 fl (81.0-99.0); MEAN CORPUSCULAR HGB 29.7 pg (27.0-31.0); MEAN CORPUSCULAR HGB CONC 32.6 g/dl (33.0-37.0); MEAN PLATELET VOLUME 9.1 fl (9.6-12.3); MONO # 0.6 10*3/uL (0.1-1.0); MONO % 7.5 % (3.0-9.0); NEUT # 5.3 10*3/uL (2.3-7.9); NEUT % 68.5 % (47.0-73.0); PLATELET COUNT AUTOMATED 152 10*3/uL (130-400); RED BLOOD COUNT 4.31 10*6/uL (4.10-5.10); RED CELL DISTRI WIDTH 13.8 % (0-14.5); WHITE BLOOD COUNT 7.7 10*3/uL (4.8-10.8)
[2023-07-05 11:47] LABS: POTASSIUM 4.5 mmol/L (3.4-5.1)
== END | disposition home or self-care (01) ==
LOC: LAB 10:42
PROVIDERS: ATTEND Internal Medicine
DX: I95.9 Hypotension, unspecified (principal)

== ENCOUNTER 2023-07-10 13:39 | Observation (INO) | payer MEDICARE ==
[~2023-07-10] VITALS: Ht 152.4 cm; Wt 93.2 kg
[2023-07-10 13:46] VITALS: BP 136/45
[2023-07-10 14:50] VITALS: BP 114/39
[2023-07-10 15:36] LABS: BASO % 0.5 % (0.0-1.0); EOS # 0.2 10*3/uL (0.0-0.4); EOS % 2.7 % (1.0-4.0); HEMATOCRIT 39.7 % (37.0-47.0); LYMPH % 25.6 % (27.0-41.0); MEAN CELL VOLUME 91.5 fl (81.0-99.0); MEAN CORPUSCULAR HGB CONC 31.7 g/dl (33.0-37.0); MEAN PLATELET VOLUME 8.9 fl (9.6-12.3); MONO # 0.7 10*3/uL (0.1-1.0); MONO % 8.4 % (3.0-9.0); NEUT # 4.9 10*3/uL (2.3-7.9); NEUT % 62.5 % (47.0-73.0); PLATELET COUNT AUTOMATED 142 10*3/uL (130-400); RED BLOOD COUNT 4.34 10*6/uL (4.10-5.10); RED CELL DISTRI WIDTH 13.7 % (0-14.5); WHITE BLOOD COUNT 7.8 10*3/uL (4.8-10.8)
[2023-07-10 15:55] LABS: ACT PARTIAL THROMBO TIME 26.2 SECONDS (20.0-32.1)
[2023-07-10 15:58] LABS: ALKALINE PHOSPHATASE 125 U/L (46-116); BUN 22 mg/dl (9-23); CHLORIDE 106 mmol/L (98-107); LIPASE 35 U/L (12-53); POTASSIUM 5.1 mmol/L (3.4-5.1); SGPT/ALT 12 U/L (10-49); TOTAL PROTEIN 6.8 gm/dL (6.0-8.0)
[2023-07-10 19:19] VITALS: BP 162/54
[2023-07-10 19:55] VITALS: BP 141/46
[2023-07-10 20:18] LABS: BILIRUBIN Negative (Negative); BLOOD Negative (Negative); CLARITY Clear (Clear); COLOR Yellow (Yellow); GLUCOSE Negative (Negative); KETONE Trace (Negative); LEUKO ESTERASE Negative (Negative); NITRITE Negative (Negative); PH 5.5 (4.5-8.0)
[2023-07-10 20:31] LABS: BACTERIA 1+; RBC 0-2 rbc/hpf (0-2)
[2023-07-11 01:30] VITALS: BP 138/72
[2023-07-11 06:10] VITALS: BP 147/43
[2023-07-11 06:29] LABS: BASO % 0.4 % (0.0-1.0); EOS # 0.2 10*3/uL (0.0-0.4); EOS % 2.7 % (1.0-4.0); HEMATOCRIT 35.1 % (37.0-47.0); LYMPH # 1.8 10*3/uL (1.3-4.4); LYMPH % 25.5 % (27.0-41.0); MEAN CELL VOLUME 91.2 fl (81.0-99.0); MEAN CORPUSCULAR HGB 29.6 pg (27.0-31.0); MEAN CORPUSCULAR HGB CONC 32.5 g/dl (33.0-37.0); MONO # 0.6 10*3/uL (0.1-1.0); MONO % 8.3 % (3.0-9.0); NEUT # 4.4 10*3/uL (2.3-7.9); NEUT % 62.5 % (47.0-73.0); PLATELET COUNT AUTOMATED 117 10*3/uL (130-400); RED BLOOD COUNT 3.85 10*6/uL (4.10-5.10); RED CELL DISTRI WIDTH 13.7 % (0-14.5); WHITE BLOOD COUNT 7.1 10*3/uL (4.8-10.8)
[2023-07-11 06:41] LABS: ALKALINE PHOSPHATASE 101 U/L (46-116); BUN 20 mg/dl (9-23); CHLORIDE 108 mmol/L (98-107); POTASSIUM 4.7 mmol/L (3.4-5.1); SGPT/ALT 10 U/L (10-49); TOTAL PROTEIN 5.4 gm/dL (6.0-8.0)
[2023-07-11] MEDS ORDERED: APRESOLINE25 MG PO (08:16)
[2023-07-11] MEDS ORDERED: FOSAMAX70 M1 PO (10:13)
[2023-07-11] MEDS ORDERED: NEURONTIN300 MG PO (10:13)
[2023-07-11] MEDS ORDERED: LISINOPRIL40 MG PO (10:15)
[2023-07-11 16:15] VITALS: BP 161/55
[2023-07-11 20:00] VITALS: BP 154/48
[2023-07-12] VITALS: BP 139/50
[2023-07-12 08:00] VITALS: BP 130/60
[2023-07-12 12:00] VITALS: BP 145/55
== END 2023-07-12 14:55 | disposition home or self-care (01) ==
LOC: ED 13:39 → EDHOLD 16:33 → 4E 07-11 15:40
PROVIDERS: Emergency Medicine; ADMIT Internal Medicine; ATTEND Internal Medicine
DX: I95.1 Orthostatic hypotension (principal); N17.9 Acute kidney failure, unspecified; I10 Essential (primary) hypertension; F32.9 Major depressive disorder, single episode, unspecified; R42 Dizziness and giddiness; Z79.82 Long term (current) use of aspirin; Z79.899 Other long term (current) drug therapy; Z90.49 Acquired absence of other specified parts of digestive tract; Z90.710 Acquired absence of both cervix and uterus

== ENCOUNTER → 2023-07-24 | Outpatient (CLI) | payer MEDICARE ==
[~2023-07-24] MED LIST changes: +APRESOLINE25 MG PO; +FOSAMAX70 M1 PO; +LISINOPRIL40 MG PO; +NEURONTIN300 MG PO
[2023-07-24 12:00] LABS: ALKALINE PHOSPHATASE 119 U/L (46-116); BUN 19 mg/dl (9-23); CHLORIDE 107 mmol/L (98-107); CHOLESTEROL 119 mg/dL (<200); LDL CHOLESTEROL 39 mg/dL (9-159); SGPT/ALT 13 U/L (5-49); TOTAL PROTEIN 6.2 gm/dL (6.0-8.0); TRIGLYCERIDES 171 mg/dl (<150)
== END | disposition home or self-care (01) ==
LOC: LAB 10:45
PROVIDERS: ATTEND Internal Medicine Cardiovascular Disease
DX: I25.10 Atherosclerotic heart disease of native coronary artery without angina pectoris (principal)

== ENCOUNTER 2024-04-27 10:42 | Emergency (ER) | payer MEDICARE ==
[~2024-04-27] VITALS: Ht 149.8 cm
[2024-04-27] MEDS ORDERED: Metoclopramide Hydrochloride 10 MG/2 ML AMP IV ONE (11:05)
[2024-04-27] MEDS ORDERED: diphenhydrAMINE hydrochloride 50 MG/ML VIAL IV ONE (11:05)
[2024-04-27] MEDS ORDERED: SODIUM CHLORIDE 0.9% 1,000 ML IV ONE (11:05)
[2024-04-27] MEDS ORDERED: IOHEXOL 300 MG/ML 100 ML VIAL IV ONE (11:10)
[2024-04-27] MEDS ORDERED: fentaNYL CITRATE/PF 50 MCG/ML SYRINGE IV ONE (11:15)
[2024-04-27 11:34] LABS: HEMATOCRIT 26.4 % (37.0-47.0); MEAN CORPUSCULAR HGB 28.7 pg (27.0-31.0); MEAN CORPUSCULAR HGB CONC 32.6 g/dl (33.0-37.0); MEAN PLATELET VOLUME 9.9 fl (9.6-12.3); PLATELET COUNT AUTOMATED 77 10*3/uL (130-400); RED CELL DISTRI WIDTH 20.8 % (0-14.5); WHITE BLOOD COUNT 7.6 10*3/uL (4.8-10.8)
[2024-04-27 11:47] LABS: BUN 11 mg/dl (9-23); CHLORIDE 104 mmol/L (98-107); LIPASE 18 U/L (12-53); POTASSIUM 3.8 mmol/L (3.4-5.1)
[2024-04-27 11:51] LABS: MANUAL DIFF REFLEX YES
[2024-04-27 12:03] LABS: PLATELET SUFFICIENCY LOW (NORMAL); TOTAL CELLS COUNTED 100 #CELLS
[2024-04-27 12:04] LABS: ACANTHOCYTES FEW; OVALOCYTES FEW; POLYCHROMASIA SLIGHT; TARGET CELLS FEW
[2024-04-27 12:05] LABS: BURR CELLS FEW
[2024-04-27] MEDS ORDERED: HYDROmorphONE Hydrochloride 1 MG/ML SYR IV ONE (13:30)
[2024-04-27] MEDS ORDERED: Ondansetron Hydrochloride 4 MG/2 ML VIAL IV ONE (13:30)
== END 2024-04-27 20:13 | disposition short-term general hospital (02) ==
LOC: ED 10:42
PROVIDERS: Emergency Medicine
DX: R16.1 Splenomegaly, not elsewhere classified (principal); R11.2 Nausea with vomiting, unspecified; I10 Essential (primary) hypertension; E78.5 Hyperlipidemia, unspecified; D49.0 Neoplasm of unspecified behavior of digestive system; F41.9 Anxiety disorder, unspecified; F32.A Depression, unspecified; E78.00 Pure hypercholesterolemia, unspecified; Z90.49 Acquired absence of other specified parts of digestive tract; Z90.710 Acquired absence of both cervix and uterus; Z96.653 Presence of artificial knee joint, bilateral; Z98.890 Other specified postprocedural states

== ENCOUNTER 2025-01-07 11:57 | Emergency (ER) | payer MEDICARE ==
[~2025-01-07] VITALS: Ht 149.8 cm; Wt 70.3 kg
[~2025-01-07 11:57] MED LIST changes: +'CLONIDINE0.1 MG PO; +ALLOPURINOL300 MG PO; +AMLODIPINE BESYL5 MG PO; +ATORVASTATIN CA40 M1 PO; +CARVEDILOL12.5 MG PO; +CARVEDILOL6.25 MG PO; +CITALOPRAM10 MG PO; +GABAPENTIN ER300 MG PO; +HYDRALAZINE HYD50 MG PO; +MAGNESIUM OXID400 MG PO; +MIRALAX POWDER17 G1 PO
[2025-01-07] MEDS ORDERED: SODIUM CHLORIDE 0.9% 1,000 ML IV ONE (12:50)
[2025-01-07 13:16] LABS: HEMATOCRIT 22.5 % (37.0-47.0); MEAN CELL VOLUME 88.2 fl (81.0-99.0); MEAN CORPUSCULAR HGB 26.3 pg (27.0-31.0); MEAN CORPUSCULAR HGB CONC 29.8 g/dl (33.0-37.0); MEAN PLATELET VOLUME 9.4 fl (9.6-12.3); RED BLOOD COUNT 2.55 10*6/uL (4.10-5.10); RED CELL DISTRI WIDTH 21.3 % (0-14.5)
[2025-01-07 13:35] LABS: ALKALINE PHOSPHATASE 134 U/L (46-116); BUN 21 mg/dl (9-23); CHLORIDE 106 mmol/L (98-107); POTASSIUM 4.2 mmol/L (3.4-5.1); SGPT/ALT 38 U/L (5-49); TOTAL PROTEIN 5.8 gm/dL (6.0-8.0)
[2025-01-07 13:42] LABS: WHITE BLOOD COUNT 0.3 10*3/uL (4.8-10.8)
[2025-01-07 13:43] LABS: MANUAL DIFF REFLEX YES; PLATELET COUNT AUTOMATED 28 10*3/uL (130-400)
[2025-01-07 14:03] LABS: BASOPHILS 6 % (0-1); TOTAL CELLS COUNTED 100 #CELLS
[2025-01-07 14:05] LABS: PLATELET SUFFICIENCY LOW (NORMAL); SCHISTOCYTES FEW
[2025-01-07] MEDS ORDERED: SODIUM CHLORIDE 0.9% 250 ML IV SCH (15:15)
[2025-01-07] MEDS ORDERED: SODIUM CHLORIDE 0.9% 500 ML IV ONE (15:34)
[2025-01-07] MEDS ORDERED: MAGNESIUM OXIDE 400 MG TAB PO ONE (16:00)
[2025-01-07 22:45] VITALS: BP 156/51
[2025-01-07 23:02] VITALS: BP 154/46
[2025-01-07 23:17] VITALS: BP 155/54
[2025-01-07 23:30] VITALS: BP 145/52
[2025-01-07 23:58] VITALS: BP 158/62
[2025-01-08] MEDS ORDERED: HEPARIN SODIUM 500 UNIT/5 ML SYR IV ONE (00:05)
== END 2025-01-08 00:20 | disposition home or self-care (01) ==
LOC: ED 11:57
PROVIDERS: Nurse Practitioner Family
DX: D61.810 Antineoplastic chemotherapy induced pancytopenia (principal); C26.1 Malignant neoplasm of spleen; R53.1 Weakness; I10 Essential (primary) hypertension; F32.A Depression, unspecified; F41.9 Anxiety disorder, unspecified; E78.00 Pure hypercholesterolemia, unspecified; Z79.899 Other long term (current) drug therapy; Z90.49 Acquired absence of other specified parts of digestive tract; Z90.710 Acquired absence of both cervix and uterus; Z98.890 Other specified postprocedural states

== ENCOUNTER 2025-01-12 15:04 | Emergency (ER) | payer MEDICARE ==
[~2025-01-12] VITALS: Ht 149.8 cm; Wt 70.3 kg
[2025-01-12] MEDS ORDERED: SODIUM CHLORIDE 0.9% 1,000 ML IV ONE (15:55)
[2025-01-12 16:31] LABS: HEMATOCRIT 29.1 % (37.0-47.0); MEAN CELL VOLUME 90.1 fl (81.0-99.0); MEAN CORPUSCULAR HGB 27.6 pg (27.0-31.0); MEAN CORPUSCULAR HGB CONC 30.6 g/dl (33.0-37.0); MEAN PLATELET VOLUME 9.1 fl (9.6-12.3); PLATELET COUNT AUTOMATED 45 10*3/uL (130-400); RED BLOOD COUNT 3.23 10*6/uL (4.10-5.10); RED CELL DISTRI WIDTH 20.6 % (0-14.5); WHITE BLOOD COUNT 3.5 10*3/uL (4.8-10.8)
[2025-01-12 16:36] LABS: MANUAL DIFF REFLEX YES
[2025-01-12 16:50] LABS: ALKALINE PHOSPHATASE 132 U/L (46-116); BUN 16 mg/dl (9-23); CHLORIDE 107 mmol/L (98-107); POTASSIUM 3.5 mmol/L (3.4-5.1); SGPT/ALT 23 U/L (5-49); TOTAL PROTEIN 5.6 gm/dL (6.0-8.0)
[2025-01-12 16:54] LABS: BILIRUBIN Negative (Negative); BLOOD Negative (Negative); CLARITY Clear (Clear); COLOR Yellow (Yellow); GLUCOSE Negative (Negative); KETONE Negative (Negative); LEUKO ESTERASE Negative (Negative); NITRITE Negative (Negative); PH 6.5 (4.5-8.0); SPECIFIC GRAVITY 1.015 (1.001-1.030); UROBILINOGEN 0.2 E.U./dl (0.0-1.0)
[2025-01-12 17:13] LABS: BACTERIA TRACE; RBC 0-2 rbc/hpf (0-2)
[2025-01-12 17:28] LABS: BASOPHILS 3 % (0-1); PLATELET SUFFICIENCY LOW (NORMAL); TOTAL CELLS COUNTED 100 #CELLS
[2025-01-12 17:29] LABS: OVALOCYTES FEW
== END 2025-01-12 23:00 | disposition short-term general hospital (02) ==
LOC: ED 15:04
PROVIDERS: Nurse Practitioner Family
DX: I11.0 Hypertensive heart disease with heart failure (principal); I50.9 Heart failure, unspecified; R42 Dizziness and giddiness; R53.1 Weakness; R06.02 Shortness of breath; F32.A Depression, unspecified; E78.5 Hyperlipidemia, unspecified; Z85.038 Personal history of other malignant neoplasm of large intestine; Z86.718 Personal history of other venous thrombosis and embolism; Z79.899 Other long term (current) drug therapy; Z90.49 Acquired absence of other specified parts of digestive tract; Z90.710 Acquired absence of both cervix and uterus; Z93.3 Colostomy status